=== PATIENT | female | born 1980 | race Caucasian/White ===

== ENCOUNTER 2021-10-15 20:48 | Emergency (ER) | payer MEDICAID, OTHER ==
[~2021-10-15] VITALS: Ht 154.9 cm; Wt 52.2 kg
[~2021-10-15 20:48] MED LIST: IBUP-974 PO; PREN-502 PO
[2021-10-15 21:17] VITALS: BP 125/85
--- NOTE | 2021-10-15 21:20 | NUR ---
TO LOBBY A/W BED AMBULATORY
[2021-10-15] MEDS ORDERED: DEC4 PO (22:39)
[2021-10-15] MEDS ORDERED: DEXT1LOZ PO (22:45)
--- NOTE | 2021-10-15 23:10 | NUR ---
swab for novel sent to lab
[2021-10-15 23:12] VITALS: BP 125/85
--- NOTE | 2021-10-15 23:12 | NUR ---
Patient discharged with v/s stable. Written and verbal after care instructions given and explained. Patient alert, oriented and verbalized understanding of instructions. Ambulatory with steady gait. All questions addressed prior to discharge. ID band removed. Patient advised to follow up with PMD. Rx of decadron given. Patient educated on indication of medication including possible reaction and side effects. Opportunity to ask questions provided and answered.
== END 2021-10-15 23:12 | disposition home or self-care (01) ==
LOC: MED 20:48
DX: U07.1 COVID-19 (principal)
CPT/HCPCS: 99283; U0003

== ENCOUNTER 2021-10-19 07:41 | Emergency (ER) | payer OTHER, SELFPAY ==
[~2021-10-19] VITALS: Ht 160 cm; Wt 53.5 kg
[~2021-10-19 07:41] MED LIST changes: +DEC4 PO; +DEXT1LOZ PO
[2021-10-19 08:01] VITALS: BP 113/70
--- NOTE | 2021-10-19 08:06 | NUR ---
C.O SORE THROAT, 610 CP X 5 DAYS , COUGH X 1 WEEK. COVID TESTED + 10/15/21. PMH: DENIES
[2021-10-19 08:08] VITALS: BP 113/70
[2021-10-19] MEDS ORDERED: BENZONATATE 100 MG CAPLF PO ONE (09:05)
[2021-10-19] MEDS ORDERED: KETOROLAC 30 MG/ML VIAL IM ONE (09:05)
[2021-10-19] MEDS ORDERED: BENZ150C2 PO (11:15)
[2021-10-19] MEDS ORDERED: IBUP-2213 PO (11:15)
--- NOTE | 2021-10-19 12:15 | NUR ---
PT DISCHARGED BY [facility]IL[facility].
--- NOTE | 2021-10-19 12:16 | NUR ---
Patient discharged with v/s stable. Written and verbal after care instructions ABOUT COVID 19 given and explained. Patient alert, oriented and verbalized understanding of instructions. Ambulatory with steady gait. All questions addressed prior to discharge. ID band removed. Patient advised to follow up with PMD. Rx of IBUPROFEN AND BENZONATATE given. Patient educated on indication of medication including possible reaction and side effects. Opportunity to ask questions provided and answered.
== END 2021-10-19 09:06 | disposition home or self-care (01) ==
LOC: MED 07:41
DX: U07.1 COVID-19 (principal)
CPT/HCPCS: 71045; 93005; 96372; 99283; J1885

== ENCOUNTER 2021-10-31 08:58 | Emergency (ER) | payer OTHER, SELFPAY ==
[~2021-10-31] VITALS: Ht 152.4 cm; Wt 51.3 kg
[~2021-10-31 08:58] MED LIST changes: +BENZ150C2 PO; +IBUP-2213 PO
[2021-10-31 09:10] VITALS: BP 112/65
[2021-10-31] MEDS ORDERED: IBUPROFEN 600 MG TAB PO ONE (10:05)
--- NOTE | 2021-10-31 10:27 | NUR ---
COLLECTED LABS WALKED TO LAB, GAVE TO [employer] TECH.
[2021-10-31 11:16] LABS: BASOPHILS % (AUTO) 0.4 % (0.0-2.0); EOSINOPHILS % (AUTO) 0.6 % (0.0-4.0); HEMATOCRIT 39.5 % (36-48); HEMOGLOBIN 13.6 g/dL (12.0-16.0); LYMPHOCYTES # (AUTO) 1.1 K/uL (2.5-16.5); LYMPHOCYTES % (AUTO) 16.2 % (20.5-51.1); MEAN CORPUSCULAR HEMOGLOBIN 31 pg (27-31); MEAN CORPUSCULAR HGB CONC 34 g/dL (33-37); MEAN CORPUSCULAR VOLUME 90.1 fL (80-94); MONOCYTES # (AUTO) 0.4 K/uL (0.8-1.0); MONOCYTES % (AUTO) 6.2 % (1.7-9.3); NEUTROPHILS # (AUTO) 5.3 K/uL (1.8-7.7); NEUTROPHILS % (AUTO) 76.6 % (42.2-75.2); PLATELET COUNT (AUTO) 242 K/uL (140-450); RED BLOOD CELL COUNT(AUTO) 4.38 MIL/uL (4.20-5.40); RED CELL DISTRIBUTION WIDTH 12.9 % (11.6-13.7); WHITE BLOOD COUNT (AUTO) 6.9 K/uL (4.8-10.8)
[2021-10-31 11:42] LABS: ALBUMIN 4.2 g/dL (3.4-5.0); ANION GAP 12.1 (8-16); CARBON DIOXIDE 25.5 mmol/L (21-32); CREATININE 0.5 mg/dL (0.6-1.3); MAGNESIUM 2.2 mg/dL (1.8-2.4); POTASSIUM 3.6 mmol/L (3.5-5.1); TOTAL BILIRUBIN 0.5 mg/dL (0.0-1.0)
--- NOTE | 2021-10-31 12:17 | NUR ---
Patient discharged with v/s stable. Written and verbal after care instructions given and explained. Patient verbalized understanding. Ambulatory with steady gait. All questions addressed prior to discharge. Advised to follow up with PMD.
== END 2021-10-31 12:16 | disposition home or self-care (01) ==
LOC: MED 08:58
DX: U07.1 COVID-19 (principal)
CPT/HCPCS: 36415; 80053; 83735; 85025; 99283